=== PATIENT | male | born 1980 | race Caucasian/White ===

== ENCOUNTER 2021-01-06 15:10 | Emergency (ER) | payer BC ==
[~2021-01-06] VITALS: Ht 177.8 cm; Wt 86.4 kg
[2021-01-06 15:34] VITALS: BP 149/95
== END 2021-01-06 16:51 | disposition home or self-care (01) ==
LOC: ER 15:11
DX: U07.1 COVID-19 (principal)
CPT/HCPCS: 36415; 99283; U0003; U0005